=== PATIENT | female | born 1990 | race Caucasian/White ===

== ENCOUNTER 2017-11-07 04:10 | Inpatient (IN) | payer OTHER ==
[~2017-11-07] VITALS: Ht 162.6 cm; Wt 101.6 kg
[2017-11-07] MEDS ORDERED: LR 1,000 ML IV SCH (04:16)
[2017-11-07] MEDS ORDERED: OXYTOCIN/0.9 % SODIUM CHLORIDE 1,000 ML IV SCH ×2 (04:16→11:46)
[2017-11-07] MEDS ORDERED: TERBUTALINE SULFATE 1 MG/ML VIAL SUBCUT ONE (04:30)
[2017-11-07] MEDS ORDERED: MEPERIDINE HCL/PF 50 MG/ML AMP IM PRN (04:30)
[2017-11-07] MEDS ORDERED: PROMETHAZINE HCL 25 MG/ML AMP IM PRN (04:30)
[2017-11-07 04:52] LABS: BASOPHILS % (AUTO) 0.5 % (0.0-2.0); EOSINOPHILS # (AUTO) 0.1 K/uL (0.0-0.4); EOSINOPHILS % (AUTO) 1.5 % (0.0-4.0); HEMATOCRIT 30.6 % (36-48); HEMOGLOBIN 10.5 g/dL (12.0-16.0); LYMPHOCYTES % (AUTO) 25.2 % (20.5-51.5); MEAN CORPUSCULAR HEMOGLOBIN 27 pg (27-31); MEAN CORPUSCULAR HGB CONC 34 % (32-36); MEAN CORPUSCULAR VOLUME 79 fL (79.0-98.0); MONOCYTES # (AUTO) 0.4 K/uL (0.0-1.0); MONOCYTES % (AUTO) 4.6 % (1.7-9.3); NEUTROPHILS # (AUTO) 5.4 K/uL (1.8-7.7); NEUTROPHILS % (AUTO) 68.2 % (40.0-70.0); PLATELET COUNT (AUTO) 318 K/uL (130-430); RED BLOOD CELL COUNT(AUTO) 3.88 MIL/uL (4.2-6.2); RED CELL DISTRIBUTION WIDTH 15.4 % (9.0-15.0); WHITE BLOOD COUNT (AUTO) 7.9 K/uL (4.8-10.8)
[2017-11-07 05:45] VITALS: BP_SYST 117
[2017-11-07] MEDS ORDERED: fentaNYL CITRATE/PF 100 MCG/2 ML AMP ONE (08:55)
[2017-11-07] MEDS ORDERED: ROPIVACAINE 0.2% 100 ML ONE (08:55)
[2017-11-07] MEDS ORDERED: LR 500 ML IV ONE (09:35)
[2017-11-07] MEDS ORDERED: FENT2mCg/mL-ROPIVA0.2%/NS EPID 150 ML EP SCH (09:45)
[2017-11-07] MEDS ORDERED: OXYTOCIN/0.9 % SODIUM CHLORIDE 1,000 ML IV ONE (11:46)
[2017-11-07] MEDS ORDERED: DOCUSATE SODIUM 100 MG CAPSULE PO PRN (12:00)
[2017-11-07] MEDS ORDERED: RHO(D) IMMUNE GLOBULIN/MALTOSE 1500 UNITS/1.3 ML (WINHRO) IM PRN (12:00)
[2017-11-07] MEDS ORDERED: LANOLIN 7 GM OINT. TP PRN (12:00)
[2017-11-07] MEDS ORDERED: WITCH HAZEL LEAF 1 MED.PAD MED.PAD TP PRN (12:00)
[2017-11-07] MEDS ORDERED: DERMOPLAST SPRAY TP PRN (12:00)
[2017-11-07] MEDS ORDERED: SENNOSIDES/DOCUSATE SODIUM 1 TAB TABLET(SENOKOT-S) PO PRN (12:00)
[2017-11-07] MEDS ORDERED: MEASLES,MUMPS&RUBELLA VACC/PF 12500 UNIT/0.5 ML VIAL SUBQ PRN (12:00)
[2017-11-07] MEDS ORDERED: ANUSOL 1 EA SUPP.RECT (PREPARATION H) RC PRN (12:00)
[2017-11-07] MEDS ORDERED: METHYLERGONOVINE MALEATE 0.2 MG TABLET PO PRN (12:00)
[2017-11-07] MEDS ORDERED: HYDROCORTISONE 0.5%, 28.35 GM TOPICAL CREAM TP PRN (12:00)
[2017-11-07] MEDS ORDERED: OXYCODONE/ACETAMINOPHEN 5-325 TABLET PO PRN (12:00)
[2017-11-07] MEDS ORDERED: MINERAL OIL 30 ML UDC ONE (14:35)
[2017-11-07] MEDS: IBUPROFEN 800 MG TABLET PO PRN ×2 (17:53→23:32)
[2017-11-07] MEDS: OXYCODONE/ACETAMINOPHEN 5-325 TABLET PO PRN (20:05)
[2017-11-07] MEDS ORDERED: TEMAZEPAM 15 MG CAPSULE PO PRN (21:00)
[2017-11-08] MEDS: IBUPROFEN 800 MG TABLET PO PRN ×4 (06:20→23:48)
[2017-11-08] MEDS: OXYCODONE/ACETAMINOPHEN 5-325 TABLET PO PRN ×3 (09:07→20:26)
[2017-11-08 10:09] LABS: HEMATOCRIT 28.9 % (36-48); HEMOGLOBIN 9.8 g/dL (12.0-16.0)
[2017-11-09] MEDS: IBUPROFEN 800 MG TABLET PO PRN ×2 (05:54→12:27)
[2017-11-09] MEDS: OXYCODONE/ACETAMINOPHEN 5-325 TABLET PO PRN (10:59)
== END 2017-11-09 15:30 | disposition home or self-care (01) | DRG 775 ==
LOC: SPU 04:10 → SMU 11-08 12:31 → SPU 11-08 23:25
PROVIDERS: ADMIT Obstetrics & Gynecology; ATTEND Obstetrics & Gynecology
PROC: 10E0XZZ Delivery of Products of Conception, External Approach (ICD-10-PCS; principal; 2017-11-07)
PROC: 3E0R3BZ Introduction of Anesthetic Agent into Spinal Canal, Percutaneous Approach (ICD-10-PCS; 2017-11-07)
PROC: 00HU33Z Insertion of Infusion Device into Spinal Canal, Percutaneous Approach (ICD-10-PCS; 2017-11-07)
DX: O80 Encounter for full-term uncomplicated delivery (principal); Z37.0 Single live birth; Z3A.40 40 weeks gestation of pregnancy
CPT/HCPCS: 36415; 81002-TC; 85018-TC; 85025; 86592; 86886; 86900; 86901; J2590; J2795; J3010; J7120